=== PATIENT | female | born 1955 | race Caucasian/White ===

== ENCOUNTER 2025-06-07 13:30 | Inpatient (IN) | payer MEDICARE, BC ==
[~2025-06-07] VITALS: Ht 167.6 cm; Wt 65.3 kg
[2025-06-07 14:16] LABS: PLATELET COUNT (AUTO) 210 K/uL (150-450); RED BLOOD CELL COUNT(AUTO) 5.06 MIL/uL (4.0-5.2); RED CELL DISTRIBUTION WIDTH 13.5 % (11.5-15.0); WHITE BLOOD COUNT (AUTO) 6.9 K/uL (4.3-11.0)
[2025-06-07] MEDS: IV NS 0.9% 1,000 ML BAG IV ONE (14:25)
[2025-06-07 14:26] LABS: CALCIUM, SERUM 9.4 mg/dL (8.5-10.1); CREATININE 0.5 mg/dL (0.6-1.3); SODIUM SERUM 139 mmol/L (136-145); UREA NITROGEN, BLOOD 14 mg/dL (7-18)
[2025-06-07 14:34] LABS: ASPARTATE AMINOTRANSFERASE 29 U/L (15-37); TOTAL PROTEIN, SERUM 7.0 g/dL (6.4-8.2)
[2025-06-07 14:43] LABS: ALCOHOL, BLOOD < 3 mg/dL (0-10)
[2025-06-07 15:20] LABS: APPEARANCE,URINE CLEAR (CLEAR); BLOOD, URINE NEGATIVE Ery/uL (NEGATIVE); LEUKOCYTE ESTERASE ,URINE 1+ (NEGATIVE); NITRITE, URINE NEGATIVE (NEGATIVE); UGLUCOSE NEGATIVE (NEGATIVE)
[2025-06-07 15:25] LABS: AMPHETAMINE, URINE NEGATIVE (NEGATIVE); BARBITURATE, URINE NEGATIVE (NEGATIVE); CANNABINOID, URINE NEGATIVE (NEGATIVE); COCCAINE, URINE NEGATIVE (NEGATIVE); OPIATE, URINE NEGATIVE (NEGATIVE)
[2025-06-07 15:36] LABS: BENZODIAZEPINE, URINE POSITIVE (NEGATIVE)
[2025-06-07 15:40] LABS: ADD URINE CULTURE YES; SQUAMOUS EPITHELIAL CELL,UR Many /HPF (None Seen)
[2025-06-07] MEDS ORDERED: CEPHALEXIN MONOHYDRATE 500 MG CAPSULE PO ONE (16:34)
[2025-06-07] MEDS: CEPHALEXIN MONOHYDRATE 500 MG CAPSULE PO ONE (16:42)
[2025-06-07] MEDS ORDERED: TEMA7.5C PO (18:23)
[2025-06-07] MEDS ORDERED: LORA-258 PO (18:23)
[2025-06-07] MEDS ORDERED: DIAZ2TAB3 PO (18:23)
[2025-06-07] MEDS ORDERED: ZALE5CAP2 PO (18:23)
[2025-06-07] MEDS ORDERED: MAG HYDROX/AL HYDROX/SIMETH 30 ML UDC PO PRN (20:00)
[2025-06-07] MEDS ORDERED: ACETAMINOPHEN 325 MG TABLET PO PRN (20:00)
[2025-06-07] MEDS ORDERED: LORAZEPAM 0.5 MG TABLET PO PRN ×2 (20:00)
[2025-06-07] MEDS ORDERED: TEMAZEPAM 7.5 MG CAPSULE PO PRN ×2 (20:00)
[2025-06-07 20:36] VITALS: BP 128/68; TEMP 98.5; O2SAT 98
[2025-06-07] MEDS: BLOOD SUGAR DIAGNOSTIC 1 EACH STRIP IN ONE (20:38)
[2025-06-07] MEDS: CEPHALEXIN MONOHYDRATE 500 MG CAPSULE PO SCH (20:43)
[2025-06-07 22:20] VITALS: BP 130/70; TEMP 98.2; O2SAT 98
[2025-06-08 07:59] LABS: ASPARTATE AMINOTRANSFERASE 19.0 U/L (15-37); CALCIUM, SERUM 9.1 mg/dL (8.5-10.1); CREATININE 0.6 mg/dL (0.6-1.3); SODIUM SERUM 141.0 mmol/L (136-145); TOTAL PROTEIN, SERUM 6.2 g/dL (6.4-8.2); UREA NITROGEN, BLOOD 11.0 mg/dL (7-18)
[2025-06-08 08:00] VITALS: BP 122/58; TEMP 97.7; O2SAT 95
[2025-06-08 08:03] LABS: LDL 94 mg/dL (0-99)
[2025-06-08] MEDS ORDERED: LORAZEPAM 0.5 MG TABLET PO PRN (10:00)
[2025-06-08] MEDS ORDERED: DULOXETINE HCL 30 MG CAPSULE.DR PO SCH ×2 (10:00→10:30)
[2025-06-08] MEDS: DULOXETINE HCL 20 MG CAPSULE.DR PO SCH (10:42)
[2025-06-08] MEDS ORDERED: ONDANSETRON HCL 4 MG/5 ML SOLUTION PO SCH (12:00)
[2025-06-08] MEDS ORDERED: ONDANSETRON 4 MG TAB.RAPDIS PO PRN (12:30)
[2025-06-08] MEDS: CHLORDIAZEPOXIDE HCL 25 MG CAPSULE PO SCH (12:43)
[2025-06-08] MEDS: GABAPENTIN 100 MG CAPSULE PO SCH (12:43)
[2025-06-08] MEDS ORDERED: CHLORDIAZEPOXIDE HCL 25 MG CAPSULE PO SCH (13:00)
[2025-06-08 16:59] VITALS: BP 125/60; TEMP 97.9; O2SAT 94
[2025-06-08 20:06] VITALS: BP 134/70; TEMP 97.8; O2SAT 95
[2025-06-08] MEDS: MAGNESIUM HYDROXIDE 30 ML UDC PO PRN (20:38)
[2025-06-09 08:00] VITALS: BP 150/85; TEMP 98.7; O2SAT 98
[2025-06-09] MEDS: GABAPENTIN 100 MG CAPSULE PO SCH (13:17)
[2025-06-09 16:00] VITALS: BP 142/75; TEMP 98.1; O2SAT 100
[2025-06-09] MEDS: SERTRALINE HCL 25 MG TABLET PO SCH (21:09)
[2025-06-10 08:00] VITALS: BP 134/69; TEMP 97.9; O2SAT 95
[2025-06-10 16:00] VITALS: BP 120/67; TEMP 98.2; O2SAT 95
[2025-06-10] MEDS: SERTRALINE HCL 25 MG TABLET PO SCH (21:21)
[2025-06-10] MEDS ORDERED: GABAPENTIN 300 MG CAPSULE PO SCH (22:00)
[2025-06-10] MEDS: GABAPENTIN 100 MG CAPSULE PO SCH (22:02)
[2025-06-10] MEDS ORDERED: TEMAZEPAM 7.5 MG CAPSULE PO PRN (23:00)
[2025-06-11 08:00] VITALS: BP 150/83; TEMP 98.3; O2SAT 100
[2025-06-11] MEDS ORDERED: GABAPENTIN 100 MG CAPSULE PO SCH (17:00)
== END 2025-06-11 15:06 | disposition home or self-care (01) | DRG 881 ==
LOC: ER 13:35 → GPS 18:14
PROVIDERS: ADMIT Nurse Practitioner Psychiatric/Mental Health; ATTEND Internal Medicine
DX: F32.9 Major depressive disorder, single episode, unspecified (principal); N39.0 Urinary tract infection, site not specified; R45.851 Suicidal ideations; F29 Unspecified psychosis not due to a substance or known physiological condition; F41.9 Anxiety disorder, unspecified; F13.10 Sedative, hypnotic or anxiolytic abuse, uncomplicated; Z79.899 Other long term (current) drug therapy; M19.90 Unspecified osteoarthritis, unspecified site; G89.29 Other chronic pain; E78.00 Pure hypercholesterolemia, unspecified; E87.5 Hyperkalemia; Z91.51 Personal history of suicidal behavior
CPT/HCPCS: 36415; 80048-TC; 80053-TC; 80061-TC; 80076-TC; 81001; 82962-TC; 84132-TC; 84443-TC; 85025-TC; 87086-TC; 97110-TC; 97116-TC; 97530-TC; 98960; G0480; J7030